=== PATIENT | male | born 1960 | race Caucasian/White ===

== ENCOUNTER 2019-03-29 09:39 | Day surgery (SDC) | payer BC ==
[~2019-03-29] VITALS: Ht 180.3 cm; Wt 86.2 kg
[~2019-03-29 09:39] MED LIST: CEFAZOLIN SOD 1 GM in D5W 50 ML IV ONE
[2019-03-29] MEDS ORDERED: INSULIN REGULAR, HUMAN 100 UNITS/ML, 10 ML VIAL IV ONE ×2 (11:00→11:45)
[2019-03-29] MEDS ORDERED: INSULIN REGULAR, HUMAN 100 UNITS/ML, 10 ML VIAL (humuLIN R) ONE ×2 (11:05→11:54)
[2019-03-29] MEDS ORDERED: IOHEXOL 50 ML IV ONE (11:45)
[2019-03-29] MEDS ORDERED: D5/0.45 NS 1,000 ML IV SCH (13:36)
[2019-03-29] MEDS ORDERED: HYDROcodone/ACETAMIN 5-325 MG TAB (NORCO/ VICODIN) PO PRN ×2 (13:45)
[2019-03-29] MEDS ORDERED: HYDROmorphone 1 MG INJ. 1 MG/ML AMPUL IVP PRN ×2 (13:45→14:00)
[2019-03-29] MEDS ORDERED: LR 1,000 ML IV SCH (13:47)
[2019-03-29] MEDS ORDERED: LR 1,000 ML IV.SOLN IV ONE (13:55)
[2019-03-29] MEDS ORDERED: CEFAZOLIN 2 GM IVPB PREMIX 50 ML IV ONE (13:55)
[2019-03-29] MEDS ORDERED: D5/0.45 NS 1,000 ML IV.SOLN IV ONE (13:55)
[2019-03-29] MEDS ORDERED: METOCLOPRAMIDE HCL 10 MG/2 ML VIAL ONE (13:55)
[2019-03-29] MEDS ORDERED: fentaNYL CITRATE 250 MCG/5 ML AMP ONE (13:55)
[2019-03-29] MEDS ORDERED: PROPOFOL 200MG/ 20ML VIAL (DIPRIVAN) IV ONE (13:55)
[2019-03-29] MEDS ORDERED: KETOROLAC TROMETHAMINE 30 MG VIAL ONE (13:55)
[2019-03-29] MEDS ORDERED: NS 1000 ML IV.SOLN IV ONE (13:55)
[2019-03-29] MEDS ORDERED: MIDAZOLAM HCL 5 MG/ML VIAL (VERSED) IV ONE (13:55)
[2019-03-29] MEDS ORDERED: ROCURONIUM BROMIDE 10 MG/ML (ZEMURON) ONE (13:55)
[2019-03-29] MEDS ORDERED: SEVOFLURANE 15 MIN GAS INH ONE (13:55)
[2019-03-29] MEDS ORDERED: fentaNYL CITRATE/PF 100 MCG/2 ML AMP ONE (13:55)
[2019-03-29] MEDS ORDERED: ONDANSETRON HCL 4 MG/2 ML VIAL ONE (13:55)
[2019-03-29] MEDS ORDERED: DEXAMETHASONE SOD PHOSPHATE 4 MG/ML VIAL ONE (13:55)
[2019-03-29] MEDS ORDERED: HYDROmorphone 2 MG/ML VIAL IVP PRN ×2 (14:00)
[2019-03-29] MEDS ORDERED: MEPERIDINE HCL/PF 25 MG/ML DISP.SYRIN IVP PRN (14:00)
[2019-03-29 14:45] VITALS: BP_SYST 149
== END 2019-03-29 16:10 | disposition home or self-care (01) ==
LOC: SDS 09:39 → SMU 09:39 → SDS 16:10
PROVIDERS: ATTEND Colon & Rectal Surgery
DX: K80.10 Calculus of gallbladder with chronic cholecystitis without obstruction (principal); E66.9 Obesity, unspecified; E11.65 Type 2 diabetes mellitus with hyperglycemia; E78.5 Hyperlipidemia, unspecified; Z79.4 Long term (current) use of insulin; Z79.899 Other long term (current) drug therapy; I10 Essential (primary) hypertension
CPT/HCPCS: 47563; 82948; 82962; 88304; C1727; C1758; J0690 ×2; J1100; J1815 ×2; J1885; J2250; J2405; J2704; J2765; J3010 ×2; J7030; J7060; J7120; Q9967; 76000